=== PATIENT | male | born 1965 | race Caucasian/White ===

== ENCOUNTER 2016-09-23 18:31 | Emergency (ER) | payer OTHER ==
[~2016-09-23] VITALS: Ht 177.8 cm; Wt 83.9 kg
[~2016-09-23 18:31] MED LIST: ASPI-482 PO; ASPI325T4 PO; Aspirin PO; FISH1CAP PO; LISI10TA2 PO; METO25TA4 PO; SIMV40TA3 PO; TICA90TA PO
[2016-09-23] MEDS ORDERED: IV NORMAL SALINE 1000ML BAG 1,000 ML IV ONE (19:00)
[2016-09-23 20:05] LABS: BASO % 0 % (0-3); EOS % 2 % (0-3); HEMATOCRIT 40.8 % (39.0-53.0); HEMOGLOBIN 14.4 g/dL (13.0-17.5); LYMPH # 3.8 x10^3/uL (1.0-4.8); LYMPH % 41 % (24-48); MEAN CORPUSCULAR HEMOGLOBIN 32 pg (25-35); MEAN CORPUSCULAR HGB CONC 35 g/dL (31-37); MEAN CORPUSCULAR VOLUME 90 fL (79-100); MONO % 14 % (0-9); NEUT % 43 % (31-73); PLATELET COUNT 250 x10^3/uL (140-400); RED BLOOD COUNT 4.56 x10^6/uL (4.30-5.70); RED CELL DISTRIBUTION WIDTH 13.5 % (11.5-14.5); WHITE BLOOD COUNT 9.3 x10^3/uL (4.0-11.0)
[2016-09-23 20:26] LABS: CALCIUM 9.5 mg/dL (8.5-10.1); CREATININE 0.8 mg/dL (0.7-1.3); GFR 101.1; POTASSIUM 3.7 mmol/L (3.5-5.1)
[2016-09-23 20:28] LABS: ETHANOL < 10 mg/dL (0-10)
[2016-09-23 20:32] LABS: NEGATIVE OBC MONO NEG; POSITIVE OBC MONO POS
[2016-09-23 20:33] LABS: BILIRUBIN,URINE NEGATIVE (NEG); GLUCOSE,URINE NEGATIVE (NEG); NITRITE,URINE NEGATIVE (NEG); PH,URINE 7.5; PROTEIN,URINE NEGATIVE (NEG-TRACE); UROBILINOGEN,URINE 0.2 mg/dL (0.2 mg/dL)
[2016-09-23 20:34] LABS: ALBUMIN 3.8 g/dL (3.4-5.0); MAGNESIUM 1.9 mg/dL (1.8-2.4); TOTAL BILIRUBIN 0.4 mg/dL (0.2-1.0); TOTAL PROTEIN 7.6 g/dL (6.4-8.2)
[2016-09-23 20:38] LABS: BACTERIA,URINE 0 /HPF (0-FEW); RBC,URINE 0 /HPF (0-2); WBC,URINE 0 /HPF (0-4)
[2016-09-23 20:39] LABS: BARBITURATES NEG (NEG); BENZODIAZEPINES NEG (NEG); CANNABINOIDS NEG (NEG); COCAINE NEG (NEG); METHADONE NEG (NEG); OPIATES NEG (NEG); PHENCYCLIDINE NEG (NEG)
--- NOTE | 2016-09-23 20:59 | PHYS DOC ---
Past Medical History Past Medical History: CAD, High Cholesterol, Hypertension, [place] Past Surgical History: Other Additional Past Surgical Histo: STENT X'S 1 Alcohol Use: Occasionally Drug Use: None Adult General Chief Complaint Chief Complaint: WEAKNESS/GENERALIZED HPI HPI Patient is a 51 year old male presenting to the emergency department for evaluation of generalized malaise fatigue and not feeling well for the past week. Patient says he denies any specific pain or specific symptoms in general this he denies any chest pain shortness of breath diaphoresis nausea vomiting or diarrhea he says that he just doesn't feel very well. He thinks that it is likely a viral syndrome however given he has had stents in the past 2 months to make sure that his heart is working okay. Review of Systems Review of Systems Constitutional: Denies fever or chills [] Eyes: Denies change in visual acuity, redness, or eye pain [] HENT: Denies nasal congestion or sore throat [] Respiratory: Denies cough or shortness of breath [] Cardiovascular: No additional information not addressed in HPI [] GI: Denies abdominal pain, nausea, vomiting, bloody stools or diarrhea [] : Denies dysuria or hematuria [] Musculoskeletal: Denies back pain or joint pain [] Integument: Denies rash or skin lesions [] Neurologic: Denies headache, focal weakness or sensory changes [] Current Medications Current Medications Current Medications Medications (Trade) Dose Ordered Sig/Verónica Start Time Stop Time Status Last Admin Dose Admin Sodium Chloride 1,000 ml @ 1,000 mls/hr 1X ONCE 09/23/16 19:00 09/23/16 19:59 DC 09/23/16 19:42 1,000 MLS/HR Allergies Allergies Allergies Coded Allergies Type Severity Reaction Last Updated Verified Penicillins Allergy Intermediate HIVES 10/22/14 Yes Physical Exam Physical Exam Constitutional: Well developed, well nourished, no acute distress, non-toxic appearance. [] HENT: Normocephalic, atraumatic, bilateral external ears normal, oropharynx moist, no oral exudates, nose normal. [] Eyes: PERRLA, EOMI, conjunctiva normal, no discharge. [] Neck: Normal range of motion, no tenderness, supple, no stridor. [] Cardiovascular:Heart rate regular rhythm, no murmur [] Lungs & Thorax: Bilateral breath sounds clear to auscultation [] Abdomen: Bowel sounds normal, soft, no tenderness, no masses, no pulsatile masses. [] Skin: Warm, dry, no erythema, no rash. [] Back: No tenderness, no CVA tenderness. [] Extremities: No tenderness, no cyanosis, no clubbing, ROM intact, no edema. [] Neurologic: Alert and oriented X 3, normal motor function, normal sensory function, no focal deficits noted. [] Psychologic: Affect normal, judgement normal, mood normal. [] Current Patient Data Vital Signs Vital Signs Date Time Temp Pulse Resp B/P (MAP) Pulse Ox O2 Delivery O2 Flow Rate FiO2 09/23/16 21:00 89 18 143/87 (105) 100 Room Air 09/23/16 18:46 98.5 98.5 Lab Values Laboratory Tests Test 09/23/16 19:45 09/23/16 20:20 White Blood Count 9.3 x10^3/uL (4.0-11.0) Red Blood Count 4.56 x10^6/uL (4.30-5.70) Hemoglobin 14.4 g/dL (13.0-17.5) Hematocrit 40.8 % (39.0-53.0) Mean Corpuscular Volume 90 fL (79-100) Mean Corpuscular Hemoglobin 32 pg (25-35) Mean Corpuscular Hemoglobin Concent 35 g/dL (31-37) Red Cell Distribution Width 13.5 % (11.5-14.5) Platelet Count 250 x10^3/uL (140-400) Neutrophils (%) (Auto) 43 % (31-73) Lymphocytes (%) (Auto) 41 % (24-48) Monocytes (%) (Auto) 14 % (0-9) H Eosinophils (%) (Auto) 2 % (0-3) Basophils (%) (Auto) 0 % (0-3) Neutrophils # (Auto) 4.0 x10^3uL (1.8-7.7) Lymphocytes # (Auto) 3.8 x10^3/uL (1.0-4.8) Monocytes # (Auto) 1.3 x10^3/uL (0.0-1.1) H Eosinophils # (Auto) 0.2 x10^3/uL (0.0-0.7) Basophils # (Auto) 0.0 x10^3/uL (0.0-0.2) Sodium Level 141 mmol/L (136-145) Potassium Level 3.7 mmol/L (3.5-5.1) Chloride Level 105 mmol/L (98-107) Carbon Dioxide Level 28 mmol/L (21-32) Anion Gap 8 (6-14) Blood Urea Nitrogen 12 mg/dL (8-26) Creatinine 0.8 mg/dL (0.7-1.3) Estimated GFR (Cockcroft-Gault) 101.1 BUN/Creatinine Ratio 15 (6-20) Glucose Level 95 mg/dL (70-99) Calcium Level 9.5 mg/dL (8.5-10.1) Magnesium Level 1.9 mg/dL (1.8-2.4) Total Bilirubin 0.4 mg/dL (0.2-1.0) Aspartate Amino Transferase (AST) 19 U/L (15-37) Alanine Aminotransferase (ALT) 37 U/L (16-63) Alkaline Phosphatase 84 U/L (46-116) Creatine Kinase 174 U/L (39-308) Troponin I Quantitative < 0.017 ng/mL (0.000-0.055) HA-Gau-L-Type Natriuretic Peptide 27 pg/mL (0-124) Total Protein 7.6 g/dL (6.4-8.2) Albumin 3.8 g/dL (3.4-5.0) Albumin/Globulin Ratio 1.0 (1.0-1.7) Thyroid Stimulating Hormone (TSH) 1.836 uIU/mL (0.358-3.74) Acetaminophen Level < 2 mcg/ml (10-30) L Acetaminophen Last Dose Date Acetaminophen Last Dose Time Ethyl Alcohol Level < 10 mg/dL (0-10) Heterophil Agglutinins Negative (NEGATIVE) Urine Collection Type Unknown Urine Color Yellow Urine Clarity Clear Urine pH 7.5 Urine Specific [place] <=1.005 Urine Protein Negative mg/dL (NEG-TRACE) Urine Glucose (UA) Negative mg/dL (NEG) Urine Ketones (Stick) Negative mg/dL (NEG) Urine Blood Negative (NEG) Urine Nitrite Negative (NEG) Urine Bilirubin Negative (NEG) Urine Urobilinogen Dipstick 0.2 mg/dL (0.2 mg/dL) Urine Leukocyte Esterase Negative (NEG) Urine RBC 0 /HPF (0-2) Urine WBC 0 /HPF (0-4) Urine Bacteria 0 /HPF (0-FEW) Urine Opiates Screen Neg (NEG) Urine Methadone Screen Neg (NEG) Urine Barbiturates Neg (NEG) Urine Phencyclidine Screen Neg (NEG) Urine Amphetamine/Methamphetamine Neg (NEG) Urine Benzodiazepines Screen Neg (NEG) Urine Cocaine Screen Neg (NEG) Urine Cannabinoids Screen Neg (NEG) Urine Ethyl Alcohol Neg (NEG) Laboratory Tests 09/23/16 19:45 Laboratory Tests 09/23/16 19:45 EKG EKG [] Radiology/Procedures Radiology/Procedures [] Course & Med Decision Making Course & Med Decision Making Patient's labs are very unremarkable except for a monocyte predominance on his CBC differential. He likely does have a viral syndrome but will not delve into what exact virus that is. Patient denies any tick bites or recent foreign travel told him to follow with his primary care provider in the next 2-3 days and come back to the ER sooner with worsening or worsening pain shortness of breath or general concerns. Dragon Disclaimer Dragon Disclaimer This electronic medical record was generated, in whole or in part, using a voice recognition dictation system. Departure Departure Impression: Primary Impression: Viral syndrome Disposition: 01 HOME, SELF-CARE Condition: GOOD Referrals: UMER DELGADO MD (PCP) Patient Instructions: Viral Syndrome SUDARSHAN MALDONADO DO September 23, 2016 20:59
[2016-09-23 21:00] VITALS: BP 143/87
--- NOTE | 2016-09-24 06:40 | EKG ---
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
== END 2016-09-23 21:05 | disposition home or self-care (01) ==
LOC: ER 18:31
DX: B34.9 Viral infection, unspecified (principal); R53.83 Other fatigue; E78.00 Pure hypercholesterolemia, unspecified; I10 Essential (primary) hypertension; I25.10 Atherosclerotic heart disease of native coronary artery without angina pectoris; I25.2 Old myocardial infarction; Z88.0 Allergy status to penicillin
CPT/HCPCS: 36415; 80053; 80305; 80320; 81001; 82550; 83735; 83880; 84443; 84484; 84703; 85027; 86308; 93005; 96360; 99285; J7030; 81025; G0480; G0481

== ENCOUNTER 2021-07-02 09:38 | Emergency (ER) | payer OTHER ==
[~2021-07-02] VITALS: Ht 177.8 cm; Wt 81.8 kg
[~2021-07-02 09:38] MED LIST changes: -ASPI325T4 PO; +ASPI325T8 PO; +LISI10TA16 PO; -LISI10TA2 PO; +SIMV40TA18 PO; -SIMV40TA3 PO
[2021-07-02] MEDS ORDERED: CEPH500T PO (11:20)
--- NOTE | 2021-07-02 11:20 | PHYS DOC ---
Past Medical History Past Medical History: CAD, High Cholesterol, Hypertension, [place] Additional Past Medical Histor: STENTS (PAULY PRABHAKAR APRN) Past Surgical History: No Surgical History Additional Past Surgical Histo: STENT X'S 1 (PAULY PRABHAKAR APRN) Smoking Status: Current Every Day Smoker Alcohol Use: Occasionally Drug Use: None (PAULY PRABHAKAR APRN) General Adult EDM: Chief Complaint: ABSCESS HPI: HPI: Patient is a 55-year-old male presents to the emergency department complaining of a lump on his scalp that has been there for 30 years however noticed over the past 2 weeks it is becoming larger and more painful. Patient reports a current 2 out of 10 pain that increases with palpated, has taken 3 tablets of extra strength Tylenol at five thirty this morning with total relief in pain or discomfort. States he was told it was a calcium filled cyst by his primary care physician and to take Tylenol for pain. Patient denies any drainage from his scalp, denies headaches, patient denies recent fever or chills, denies neck pain, denies sore throat, denies abdominal pain, nausea, vomiting, diarrhea, chest palpitations denies chest pain, chest or nasal congestion, reports his last tetanus immunization was 3 years ago, reports a history of high blood pressure, hypercholesterol problems. States he takes lisinopril, metoprolol, hydrochlorothiazide, simvastatin, 81 mg aspirin, and fish oil supplement. Denies an allergy to penicillin, denies other physical complaints or physical concerns. (PAULY PRABHAKAR APRN) Review of Systems: Review of Systems: 14 body systems of review of systems have been reviewed. See HPI for pertinent positives and negative responses, otherwise all other systems are negative, nonpertinent or noncontributory. Constitutional: Negative except as outlined in HPI above. Skin: Negative except as outlined in HPI above. Eyes: Negative except as outlined in HPI above. HENT: Negative except as outlined in HPI above. Respiratory: Negative except as outlined in HPI above. Cardiovascular: Negative except as outlined in HPI above. GI: Negative except as outlined in HPI above. : Negative except as outlined in HPI above. Musculoskeletal: Negative except as outlined in HPI above. Integument: Negative except as outlined in HPI above. Neurologic: Negative except as outlined in HPI above. Endocrine: Negative except as outlined in HPI above. Lymphatic: Negative except as outlined in HPI above. Psychiatric: Negative except as outlined in HPI above. (PAULY PRABHAKAR APRN) Heart Score: C/O Chest Pain: No Risk Factors: Risk Factors: DM, Current or recent (<one month) smoker, HTN, HLP, family history of CAD, obesity. Risk Scores: Score 0 - 3: 2.5% MACE over next 6 weeks - Discharge Home Score 4 - 6: 20.3% MACE over next 6 weeks - Admit for Clinical Observation Score 7 - 10: 72.7% MACE over next 6 weeks - Early Invasive Strategies (PAULY PRABHAKAR APRN) Allergies: Allergies: Allergies Coded Allergies Type Severity Reaction Last Updated Verified Penicillins Allergy Intermediate HIVES 07/02/21 Yes (PAULY PRABHAKAR APRN) Physical Exam: PE: Constitutional: Well developed, well nourished, no acute distress, non-toxic appearance. 55-year-old male in no apparent distress. HENT: Normocephalic, atraumatic. There is a 3 cm fluctuant skin lesion to the left parietal scalp without central punctum or drainage, very mild erythema, no induration appreciated, there is an adjacent piece size firm lesion to the right parietal scalp without erythema or induration or drainage. No other lymphadenopathy of the head or neck appreciated, oropharynx moist, pink, no deep tissue infectious process appreciated, patient is speaking in normal voice tones, there is no drooling, no trismus. Eyes: Conjunctiva normal, no discharge. Neck: Normal range of motion, no stridor. Cardiovascular: No cyanosis appreciated, distal cap refill less than 2 seconds. Lungs & Thorax: Patient is in no respiratory distress, no audible adventitious lung sounds appreciated. Abdomen: Nontender, no abnormalities noted. Skin: Warm, dry, no erythema, no rash. See HEENT note for focused skin examination. Back: No tenderness, no deformities. Extremities: No tenderness, no cyanosis, no clubbing, ROM intact, no edema. Neurologic: Alert and oriented X 3, normal motor function, normal sensory function, no focal deficits noted. Psychologic: Affect normal, judgement normal, mood normal. (PAULY PRABHAKAR APRN) Current Patient Data: Vital Signs: Vital Signs Date Time Temp Pulse Resp B/P (MAP) Pulse Ox O2 Delivery O2 Flow Rate FiO2 2/15/22 09:43 98.4 96 14 169/85 (113) Room Air 98.4 (PAULY PRABHAKAR APRN) EKG: EKG: [] (PAULY PRABHAKAR APRN) Radiology/Procedures: Radiology/Procedures: [] (PAULY PRABHAKAR APRN) Course & Med Decision Making: Course & Med Decision Making Pertinent Labs and Imaging studies reviewed. (See chart for details) 55-year-old male, vital signs reviewed, resents emerged from concerning lump on head for past 30 years increasing in size and pain. Patient currently reports pain at a 2 out of 10 that was relieved with p.o. Tylenol this morning. Physical examination concerning for cyst versus abscess, discussed patient case with ED attending physician Dr. Ellsworth who examined patient and performed bedside sonogram of skin lesion, noted inflamed skin tissue low likelihood of drainable abscess, recommended patient start on Keflex regimen, strict follow-up with primary care this week, follow-up with dermatology, recommendations reviewed with patient, patient gave verbal understanding of and is amenable to ED discharge planning. Dr. Ellsworth did not recommend I&D of skin lesion. Discussed with the patient all findings and diagnostic testing as well as the need to follow-up with their primary care provider for further evaluation and treatment or return to the ED if any new or worsening symptoms. Strict return precautions were also discussed at length, the patient voiced understanding and agreement with the discharge planning. The patient was nontoxic in appearance, in no apparent distress, and hemodynamically stable at the time of disposition. (PAULY PRABHAKAR APRN) Course & Med Decision Making Is on evaluated this patient. I have reviewed the PA/CHILD SUPPORT OFFICER's note and plan of care. I agree with the clinical impression, plan, and disposition with the leonides ramsey additions: Patient has had a cyst on his head for several years, recently became red and more painful over the past several days. Worse with touch. No fever/chills or evidence of systemic infection. Bedside ultrasound showed a well-circumscribed tissue density without any evidence of abscess or hypoechoic collection. Discussed with patient that I felt he would benefit from a trial of antibiotics, that cyst removal would likely be more likely to succeed if infection could be controlled first. Patient voices understanding on need for PCP f/u. (SEBASTIAN ELLSWORTH Disclaimer: [place] Disclaimer: This electronic medical record was generated, in whole or in part, using a voice recognition dictation system. (PAULY PRABHAKAR APRN) Departure Departure Impression: Primary Impression: Infected cyst of skin Disposition: HOME / SELF CARE / HOMELESS Condition: GOOD Referrals: NO PCP (PCP) Additional Instructions: You were seen today in the emergency department for cyst on your scalp. This was examined with a sonogram, it does not appear there is any fluid to drain however as we discussed, I will prescribe you a antibiotic called Keflex, please take as directed until complete. Please follow-up with your primary care physician Dr. Leonard for reevaluation of the cyst this week, I am also providing you a comb fixer to follow-up with, please call today or tomorrow for an appointment. You may continue to use [id number] Tylenol or Motrin for ongoing discomfort. Return to the emergency department for worsening symptoms or other concerns. Thank you for visiting our Emergency Department. It was a pleasure taking care of you today in the emergency department and we appreciate you trusting us with your care. If any additional problems come up don't hesitate to return to visit us. Please follow up with your primary care provider so they can plan additional care if needed and know about the problem that you had. If symptoms worsen come back to the Emergency Department. Any concerning symptoms that start such as chest pain, shortness of air, weakness or numbness on one side of the body, running high fevers or any other concerning symptoms return to the ER. [facility] [place] [employer] [id number] in [facility], located in [facility] Scripts Cephalexin (CEPHALEXIN) 500 Mg Tablet 1 TAB PO QID for scalp infection, #40 TAB 0 Refills Prov: PAULY PRABHAKAR APRN 07/02/21 PAULY PRABHAKAR APRN Jul 02, 2021 11:20 SEBASTIAN ELLSWORTH MD Jul 03, 2021 22:45
[2021-07-02 11:29] VITALS: BP 139/73
[2021-07-02] MEDS ORDERED: CEPHALEXIN 250 MG CAPSULE. PO ONE (11:30)
== END 2021-07-02 11:30 | disposition home or self-care (01) ==
LOC: ER 09:38
DX: L72.8 Other follicular cysts of the skin and subcutaneous tissue (principal); E78.00 Pure hypercholesterolemia, unspecified; F17.200 Nicotine dependence, unspecified, uncomplicated; I10 Essential (primary) hypertension; I25.2 Old myocardial infarction; I25.10 Atherosclerotic heart disease of native coronary artery without angina pectoris; Z95.5 Presence of coronary angioplasty implant and graft; Z88.0 Allergy status to penicillin
CPT/HCPCS: 99283